=== PATIENT | female | born 1970 | race Caucasian/White ===

== ENCOUNTER 2021-05-18 19:40 | Inpatient (IN) | payer SELFPAY ==
[~2021-05-18] VITALS: Ht 157.5 cm; Wt 72.6 kg
[2021-05-18] MEDS ORDERED: MORPHINE SULFATE 4 MG/ML CPJ (NOT FOR IM USE) IV ONE (20:30)
[2021-05-18] MEDS ORDERED: ONDANSETRON HCL 4MG/2ML INJ IV ONE (20:30)
[2021-05-18 20:35] LABS: BASOPHILS % 0.4 % (0.0-2.0); EOSINOPHILS % 1.2 % (0.0-5.0); HEMATOCRIT. 40.1 % (36.0-48.0); HEMOGLOBIN. 13.7 g/dL (12.0-16.0); LYMPHOCYTES % 30.2 % (20.0-50.0); MEAN CORPUSCULAR HEMOGLOBIN 28.8 pg (28.0-32.0); MEAN CORPUSCULAR VOLUME 84.4 fL (81.0-99.0); MONOCYTES % 7.8 % (2.0-8.0); NEUTROPHILS % 60.4 % (40.0-76.0); PLATELET 369 x1000/uL (130-400); RED BLOOD CELL COUNT 4.75 mill/uL (4.2-5.4); RED CELL DISTRIBUTION WIDTH 13.8 % (11.6-14.6)
[2021-05-18 20:38] LABS: CHLORIDE 107 mEq/L (98-107)
[2021-05-18 20:42] LABS: ETHANOL BLOOD < 10 mg/dL
[2021-05-18 20:45] LABS: CLARITY URINE CLEAR (CLEAR); COLOR URINE YELLOW (YELLOW); KETONES URINE TRACE (NEGATIVE); LEUKOCYTE ESTERASE URINE TRACE (NEGATIVE); NITRITE URINE NEGATIVE (NEGATIVE); OCCULT BLOOD URINE TRACE (NEGATIVE); PH URINE 5.5 (4.5-8.0); PROTEIN URINE NEGATIVE (NEGATIVE); SPECIFIC GRAVITY URINE 1.024 (1.005-1.030); UROBILINOGEN URINE 0.2 E.U./dL (0.2-1.0)
[2021-05-18 20:59] LABS: METHADONE URINE SCREEN NEGATIVE (NEGATIVE); OPIATES URINE SCREEN NEGATIVE (NEGATIVE); PHENCYCLIDINE URINE SCREEN NEGATIVE (NEGATIVE)
[2021-05-18 21:00] LABS: *AMPHETAMINES SCREEN URINE NEGATIVE (NEGATIVE); *BARBITURATES SCREEN URINE NEGATIVE (NEGATIVE); *BENZODIAZEPINES SCREEN URINE NEGATIVE (NEGATIVE); *COCAINE SCREEN URINE NEGATIVE (NEGATIVE); CANNABINOID URINE SCREEN NEGATIVE (NEGATIVE)
[2021-05-19] MEDS ORDERED: IOHEXOL-300 100 ML BOTTLE ONE (01:09)
[2021-05-19] MEDS ORDERED: KETOROLAC 15MG/ML VIAL IV ONE (02:45)
[2021-05-19] MEDS ORDERED: MORPHINE SULFATE 4 MG/ML CPJ (NOT FOR IM USE) IV ONE (03:30)
[2021-05-19] MEDS ORDERED: ONDANSETRON HCL 4MG/2ML INJ IV PRN (10:15)
[2021-05-19 12:00] VITALS: BP_SYST 123; BP_SYST 195; BP_DIAS 59; BP_DIAS 76
[2021-05-19] MEDS: HYDROCODONE/ACETAMINOPHEN 5/325MG TABLET PO PRN ×2 (12:18→20:41)
[2021-05-19] MEDS: HYDRALAZINE HCL 100MG TABLET PO SCH ×4 (12:20→22:00)
[2021-05-19] MEDS: AMLODIPINE 10MG TABLET PO SCH (12:30)
[2021-05-19] MEDS ORDERED: MORPHINE SULFATE 2 MG/ML CPJ (NOT FOR IM USE) IV SCH (13:00)
[2021-05-19] MEDS ORDERED: HYDRALAZINE HCL 100MG TABLET PO SCH (14:00)
[2021-05-19 16:00] VITALS: BP 142/71
[2021-05-19 20:00] VITALS: BP 157/79
[2021-05-20] VITALS: BP 115/53
[2021-05-20 04:00] VITALS: BP 114/79
[2021-05-20 07:51] LABS: BASOPHILS % 0.4 % (0.0-2.0); EOSINOPHILS % 1.8 % (0.0-5.0); HEMATOCRIT. 42.4 % (36.0-48.0); HEMOGLOBIN. 14.5 g/dL (12.0-16.0); LYMPHOCYTES % 28.6 % (20.0-50.0); MEAN CORPUSCULAR HEMOGLOBIN 29.1 pg (28.0-32.0); MEAN PLATELET VOLUME 8.1 fl (7.4-10.4); MONOCYTES % 7.2 % (2.0-8.0); PLATELET 332 x1000/uL (130-400); RED BLOOD CELL COUNT 4.99 mill/uL (4.2-5.4); RED CELL DISTRIBUTION WIDTH 14.3 % (11.6-14.6)
[2021-05-20 07:58] LABS: CHLORIDE 106 mEq/L (98-107)
[2021-05-20 08:00] VITALS: BP 134/70
[2021-05-20] MEDS: HYDROCODONE/ACETAMINOPHEN 5/325MG TABLET PO PRN (10:48)
[2021-05-20] MEDS: AMLODIPINE 10MG TABLET PO SCH (10:48)
[2021-05-20 12:00] VITALS: BP 144/76
[2021-05-20] MEDS ORDERED: POTASSIUM CHLORIDE 20MEQ/PACKET PO SCH (12:00)
[2021-05-20] MEDS: HYDRALAZINE HCL 100MG TABLET PO SCH (13:09)
[2021-05-20 16:00] VITALS: BP 125/78
[2021-05-20 16:33] VITALS: BP 125/78
== END 2021-05-20 18:07 | disposition home or self-care (01) | DRG 251 ==
LOC: ER 19:40 → EDBD 19:40 → 6EST 05-19 03:59 → ENRESERV 05-19 08:14
PROVIDERS: ADMIT Internal Medicine; ATTEND Internal Medicine
DX: R10.9 Unspecified abdominal pain (principal); K86.2 Cyst of pancreas; R11.2 Nausea with vomiting, unspecified; N28.1 Cyst of kidney, acquired; D25.9 Leiomyoma of uterus, unspecified; I10 Essential (primary) hypertension; Z82.49 Family history of ischemic heart disease and other diseases of the circulatory system
CPT/HCPCS: 36415; 71045; 74177; 80048; 80053; 80305; 80320; 81003; 83605; 83880; 84484; 85025; 86850; 86900; 93005; 99285; J1885; J2270; J2405; Q9967; G0480